=== PATIENT | female | born 1965 | race Caucasian/White ===

== ENCOUNTER 2017-08-05 16:11 | Inpatient (IN) | payer OTHER ==
[~2017-08-05] VITALS: Ht 175.3 cm; Wt 74.8 kg
--- NOTE | ~2017-08-05 | PN ---
Unit #: [id number] #: [id number] Patient: NI SHARPE [id number] [facility] [address] [place] [address] [id number] MR#: [id number] NAME: NI SHARPE ROOM: [facility] Age: 52 Sex: F Admission Date: 08/05/2017 : 1965 Attending Physician: Murtaza Tatum M.D. Admitting Physician: Murtaza Tatum M.D. Primary Care Physician: Generic Doctor Not In System [facility] PROGRESS NOTES DATE 08/07/2017 DISCUSSION Ni is having fewer detox symptoms today. Her mood is less anxious with a congruent affect. She is alert and fully oriented with no active psychosis. We did discuss some changes in the schedule of her medication management. ASSESSMENT Opiate dependence. PLAN We will change her Cymbalta to bedtime as requested and make her Sudafed p.r.n. She will continue on the detox protocol and I anticipate discharge soon. Dictated by... Murtaza Tatum M.D. REGINO/carter TD: 08/10/2017 11:06 JOB #: [id number] [facility] PROGRESS NOTES Page 1 of 1 X Murtaza Tatum MD PROGRESS NOTE
--- NOTE | ~2017-08-05 | DS ---
Unit #: [id number] #: [id number] Patient: NI SHARPE [id number] [facility] [address] [place] [address] [id number] I MR#: [id number] NAME: NI SHARPE ROOM: [facility]0 Age: 52 Sex: F Admission Date: 08/05/2017 : 1965 Discharge Date: 08/08/2017 Attending Physician: Murtaza Tatum M.D. Primary Care Physician: Generic Doctor Not In System DISCHARGE SUMMARY REASON FOR ADMISSION Ni is a 52-year-old woman, who has been taking hydrocodone for a longtime from her primary care physician. She reported that he has recommended discontinue all these medications prior to surgery and she came in for opioid detox in a medically managed setting. DIAGNOSTIC STUDIES LABORATORY RESULTS: Please see hospital chart. HOSPITAL COURSE The patient was admitted and placed on the opioid detox protocol. Home medications were continued unchanged. Her physical examination was reviewed and noted she had no significant adverse side effects from her detox. On the date of discharge, she had established sobriety with no further issues. DISCHARGE DIAGNOSES AXIS I: Opioid dependence with withdrawal and history of major depression. AXIS II: No diagnosis. AXIS III: History of breast cancer, chronic pain, fibromyalgia, multiple spinal surgeries, and ventricular tachycardia with cardiac ablation. AXIS IV: AXIS V: DISCHARGE INSTRUCTIONS Follow up with primary care physician. DISCHARGE MEDICATIONS No prescriptions were issued. The patient was to continue on her previously effective medications of Cymbalta, Maxalt, Ultram, , trazodone, and Sudafed per her primary care doctor. CONDITION AT DISCHARGE Improved. PROGNOSIS Fair to good. DIET AND ACTIVITY Unit #: [id number] #: [id number] Patient: NI SHARPE Ad tana. Dictated by... Jordan MurphyH/christiano TD: 08/08/2017 18:26 JOB #: [id number] DISCHARGE SUMMARY Page 1 of 1 X Murtaza Tatum MD X DISCHARGE SUMMARY
--- NOTE | ~2017-08-05 | HP ---
Unit #: [id number] #: [id number] Patient: NI SHARPE [id number] [facility] [address] [place] [address] [id number] MR#: [id number] NAME: NI SHARPE ROOM: [facility]210 Age: 52 Sex: F Admission Date: 08/05/2017 : 1965 Attending Physician: Murtaza Tatum M.D. Admitting Physician: Murtaza Tatum M.D. Primary Care Physician: Generic Doctor Not In System HISTORY AND PHYSICAL HISTORY OF PRESENT ILLNESS Ni is a 52-year-old female admitted on 08/05/[address] [place] [address] for detox from opiates. PAST MEDICAL HISTORY 1. Breast cancer in 2012. 2. History of ventricular tachycardia with a subsequent cardiac ablation. 3. Chronic pain. She is currently in a wheelchair. PAST SURGICAL HISTORY 1. Bilateral mastectomy with multiple reconstructive surgeries. 2. Back surgery x2. 3. Cardiac ablation. 4. Partial hysterectomy. ALLERGIES Tetracycline. SOCIAL HISTORY Occasional tobacco use. No alcohol use. Does overuse prescription pain pills. Most recently, she has been using hydromorphone. She is currently single, living with her daughter and her mother and is unemployed. FAMILY HISTORY Noncontributory. REVIEW OF SYSTEMS CONSTITUTIONAL: No fever or chills. HEENT: Denies any sore throat, ear pain or runny nose. CARDIOVASCULAR: Denies chest pain, irregular heart rhythm or palpitations. CHEST: Denies shortness of breath or cough. No hemoptysis. GASTROINTESTINAL: Denies nausea, vomiting, diarrhea or chronic constipation. ENDOCRINE: Denies history of increased thirst or urination. No recent significant weight loss or gain. GENITOURINARY: Denies dysuria, frequency, or hematuria. SKIN: Denies any rashes. HEMATOLOGIC: Denies history of increased bleeding or bruising. MUSCULOSKELETAL: Denies any hot, swollen joints. No generalized muscle pain. NEUROLOGIC: Denies problems with vision or speech. No frequent, severe headaches. No numbness, tingling or weakness in any extremities. Denies Unit #: [id number] #: [id number] Patient: NI SHARPE loss of bladder or bowel control. CURRENT MEDICATIONS 1. Rizatriptan. 2. Duloxetine. 3. Tramadol. 4. Baclofen. 5. Anastrozole. 6. Trazodone. 7. Sudafed PE. PHYSICAL EXAMINATION GENERAL: Alert, oriented, in no acute distress. VITAL SIGNS: Blood pressure 126/56, heart rate 142, temperature 97.8. HEIGHT: 5 feet 9. WEIGHT: 165 pounds. SKIN: Warm and dry without rash or lesion. HEENT: Normocephalic. TMs not viewed. Oral and nasal passages clear. Conjunctivae clear. PERRLA. EOMs intact. NECK: Supple without lymphadenopathy or thyromegaly. HEART: Regular rate and rhythm without murmur. LUNGS: Clear. ABDOMEN: Soft, nontender, without masses or hepatosplenomegaly. : Not done. EXTREMITIES: No evidence of cyanosis, clubbing or edema. Moves all without focal deficit. NEUROLOGICAL: Grossly within normal limits. Cranial Nerves: II: Visual barrera are intact. III, IV AND : Extraocular movements are intact. Pupils are equal, round and reactive to light. V: Facial sensation is grossly normal. VII: Facial movements and expression are normal. VIII: Auditory acuity grossly intact. IX, X: Uvula is midline. Phonation is normal. XI: Patient shrugs shoulders and turns head normally. XII: Tongue protrudes in the midline. Sensory and Motor Function: Sensory and motor sensation is grossly normal. Motor: moves all extremities well. Coordination: Gait is normal. Deep Tendon Reflexes: Intact. IMPRESSION 1. Psychiatric admission. 2. Breast cancer in 2012. 3. History of ventricular tachycardia. 4. Chronic pain, currently using a wheelchair for falls precautions. RECOMMENDATIONS PSYCHIATRIC: Per psychiatrist. MEDICAL: No contraindication to participate in facility's activities. MEDICAL PROGNOSIS Good. MEDICAL CONDITION Stable. Unit #: [id number] #: [id number] Patient: NI SHARPE Dictated by... Dena Patterson/ignacio TD: 08/06/2017 14:48 JOB #: [id number] HISTORY AND PHYSICAL Page 1 of 1 X MRAC AVILES APRN X HISTORY AND PHYSICAL
--- NOTE | ~2017-08-05 | PA ---
Unit #: [id number] #: [id number] Patient: NI SHARPE [id number] [place] [address] [id number] MR#: [id number] NAME: NI SHARPE ROOM: [facility] Age: 52 Sex: F Admission Date: 08/05/2017 : 1965 Date of Assessment: Attending Physician: Murtaza Tatum M.D. Admitting Physician: Murtaza Tatum M.D. Primary Care Physician: Generic Doctor Not In System PSYCHIATRIC ASSESSMENT DATE OF SERVICE 08/06/2017. INFORMANTS The patient, reliable and OLOP reliable. CHIEF COMPLAINT Opiate withdrawal. HISTORY OF PRESENT ILLNESS Ni is a 52-year-old woman, who has been taking hydrocodone from her primary care physician for a long time. She reported this is due to degenerative disk disease, arthritis, and chronic fatigue. Her pain management doctor has recommended that she discontinue opiates and she was referred here to inpatient detox due to her poor tolerance of outpatient treatment. PAST PSYCHIATRIC HISTORY The patient has a history of depression, treated with Cymbalta, clonazepam, and p.r.n. lorazepam. She has also taken trazodone for insomnia. She has never been hospitalized for psychiatric treatment. FAMILY PSYCHIATRIC HISTORY There is a family history of alcoholism and anxiety. SOCIAL HISTORY The patient denied a history of childhood abuse or neglect. She is a high school graduate with some college, who is in the process of applying for disability. She lives with her 81-year-old mother and a 15-year-old daughter and is , but her is still supportive of her. PAST MEDICAL HISTORY Significant for fibromyalgia; arthritis; degenerative disk disease; history of multiple spine surgeries; and history of breast cancer, status post chemotherapy. MEDICATIONS Hydromorphone, tramadol, Maxalt, and Phenergan. ALLERGIES Morphine and tetracycline. SUBSTANCE ABUSE HISTORY Unit #: [id number] #: [id number] Patient: NI SHARPE The patient has been using pain medicines iatrogenically for years. MENTAL STATUS EXAMINATION The patient presented as a mildly disheveled woman, appearing her stated age. She was cooperative with the examination. Her speech was spontaneous and easily understood. Musculoskeletal examination was calm. Her mood was mildly anxious with a congruent affect. She was alert and fully oriented. Memory and concentration were fair. Thought processes were goal directed with no active psychosis. She had no suicidal ideation, intent, or plan. Insight and judgment were fair. Fund of knowledge and abstraction, fair. ASSETS AND LIABILITIES The patient knows local resources and presents voluntarily for treatment. Liabilities include difficulty establishing sobriety and multiple pain issues. ADMITTING DIAGNOSES AXIS I: Opiate dependence with withdrawal, uncomplicated, F11.23 and history of major depression. AXIS II: No diagnosis. AXIS III: History of breast cancer, history of chronic pain, history of fibromyalgia, and multiple spinal surgery. AXIS IV: AXIS V: PSYCHIATRIC PLAN The patient was admitted and placed on the opioid detox protocol. Her home medications will be restarted with no changes. She will enroll in psychotherapy groups and activities, and physical examination and laboratory studies will be ordered and reviewed. TREATMENT GOALS Establishment of sobriety, improvement in insight, and improvement in coping skills. DISCHARGE PLANNING Follow up with primary care physician for pain management. ESTIMATED LENGTH OF STAY 5 days. Dictated by... Murtaza Tatum M.D. REGINO/christiano TD: 08/07/2017 17:52 JOB #: [id number] Unit #: [id number] #: [id number] Patient: NI SHARPE PSYCHIATRIC ASSESSMENT Page 1 of 1 X Murtaza Tatum MD X PSYCHIATRIC ASSESSMENT
[2017-08-06 13:21] LABS: BASOPHIL% 0.6 % (0-2.5); EOSINOPHIL# 0.1 X10e3 (0-0.7); EOSINOPHIL% 1.1 % (0.0-7.0); HEMATOCRIT 36.7 % (35.0-45.0); HEMOGLOBIN 12.3 gm/dL (12.0-16.0); LYMPHOCYTE# 1.5 X10e3 (1.0-3.5); LYMPHOCYTE% 26.9 % (17.0-45.0); MEAN CORPUSCULAR HEMOGLOBIN 30.8 PG (28-34); MEAN CORPUSCULAR HGB CONC 33.4 g/dL (30-36); MEAN PLATELET VOLUME 8.3 FL (6.5-11.5); MONOCYTE# 0.4 X10e3 (0-1.0); MONOCYTE% 7.7 % (3.0-12.0); NEUTROPHIL# 3.6 X10e3 (1.5-7.1); NEUTROPHIL% 63.7 % (40-75); PLATELET COUNT 291 X10e3 (140-420); RED BLOOD COUNT 3.99 X10e (3.90-5.30); RED CELL DISTRIBUTION WIDTH 13.6 % (11.0-15.5); WHITE BLOOD COUNT 5.7 X10e3 (4.0-10.5)
[2017-08-06 13:38] LABS: ALBUMIN SERUM 4.1 g/dL (3.5-5.0); BILIRUBIN,TOTAL 0.6 mg/dL (0.2-2.0); BUN/CREATININE RATIO 11.42; CALCIUM SERUM 9.6 mg/dL (8.4-10.2); CREATININE SERUM 0.7 mg/dL (0.6-1.4); GLOM FILT RATE Estimated 99.6 mL/min (>60); POTASSIUM 4.1 mmol/L (3.5-5.1); PROTEIN TOTAL SERUM 6.7 g/dL (6.0-8.3)
[2017-08-06 14:16] LABS: DIFF IND NO
== END 2017-08-08 13:03 | DRG 897 ==
LOC: P2S 18:34
PROVIDERS: Psychiatry & Neurology Psychiatry
PROC: HZ2ZZZZ Detoxification Services for Substance Abuse Treatment (ICD-10-PCS; principal; 2017-08-05)
DX: F11.23 Opioid dependence with withdrawal (principal); M79.7 Fibromyalgia; Z85.3 Personal history of malignant neoplasm of breast; Z81.1 Family history of alcohol abuse and dependence
CPT/HCPCS: 80053; 85025